=== PATIENT | female | born 1940 | race Caucasian/White ===

== ENCOUNTER → 2023-09-01 18:28 | Outpatient (REF) | payer MEDICARE, OTHER, SELFPAY | LOC: WDC 18:28 | PROVIDERS: ATTENDING PHYSICIAN Obstetrics & Gynecology; FAMILY PHYSICIAN Internal Medicine Geriatric Medicine | DX: Z12.31 Encounter for screening mammogram for malignant neoplasm of breast (principal); N64.4 Mastodynia | CPT/HCPCS: 77063; 77067 ==

== ENCOUNTER → 2023-10-08 08:22 | Outpatient (REF) | payer MEDICARE, OTHER, SELFPAY | LOC: RCS 08:22 | PROVIDERS: ATTENDING PHYSICIAN Nurse Practitioner; FAMILY PHYSICIAN Internal Medicine | DX: I10 Essential (primary) hypertension (principal); R00.2 Palpitations; I35.1 Nonrheumatic aortic (valve) insufficiency | CPT/HCPCS: 93306 ==

== ENCOUNTER 2023-12-15 10:03 | Emergency (ER) | payer MEDICARE, OTHER, SELFPAY ==
[2023-12-15 10:09] VITALS: BP 140/114
[2023-12-15 10:58] LABS: % Basophils 0.6 % (0-2); % Eosinophils 3.2 % (0-6); % Immature Granulocytes 0.3 % (0-0.5); % Lymphocytes 30.3 % (20.5-51.1); % Monocytes 8.3 % (1.7-9.3); % Neutrophils 57.3 % (42.2-75.2); Absolute Eosinophils 0.2 10^3/uL (0-0.7); Absolute Lymphocytes 1.9 10^3/uL (1.2-3.4); Absolute Monocytes 0.5 10^3/uL (0.1-0.6); Absolute Neutrophils 3.5 10^3/uL (1.4-6.5); Hematocrit 31.1 % (37.0-47.0); Hemoglobin 10.7 g/dL (12.0-16.0); Mean Corp Hgb Conc. 34.4 g/dL (33.0-37.0); Mean Corpuscular Hgb 30.8 pg (27.0-31.0); Mean Corpuscular Volume 89.6 fL (81.0-99.0); Mean Platelet Volume 9.4 fL (7.4-10.4); Nucleated Red Blood Cells % 0 %; Platelet Count 279 10^3/uL (130-400); Red Blood Cell Count 3.47 10^6/uL (4.20-5.40); Red Cell Dist. Width 12.7 % (11.5-14.5); White Blood Cell Count 6.2 10^3/uL (4.8-10.8)
[2023-12-15 11:13] LABS: ALT (SGPT) 22 U/L (0-35); AST (SGOT) 25 U/L (14-36); Albumin 4.1 g/dl (3.5-5.0); Alkaline Phosphatase 57 U/L (38-126); Blood Urea Nitrogen 18 mg/dl (7-17); Calcium 9.6 mg/dl (8.4-10.2); Carbon Dioxide 27 mmol/L (22-30); Chloride 105 mmol/L (98-107); Glucose 96 mg/dl (70-99); Sodium 139 mmol/L (135-145); Total Bilirubin 0.4 mg/dl (0.2-1.3); Total Protein 6.6 g/dl (6.3-8.2); eGFR > 60.00
[2023-12-15 11:22] LABS: Troponin I < 0.012 ng/ml
--- NOTE | 2023-12-15 11:25 | ED.GENMED ---
History of Present Illness
General
Chief Complaint: Musculo-Skeletal Complaint
Source: patient
Time Seen by Provider: 12/15/23 10:35
Travel History
Have you had any contact with someone who has COVID-19?: No
Do you have any symptoms of coronavirus? Fever > 100 degrees, chills, cough, shortness of breath, sore throat, loss of taste or smell, muscle aches, or headache?: No
History of Present Illness
History of Present Illness:
83-year-old female with past medical history of hypertension, hyperlipidemia, mitral valve prolapse presenting to the emergency department for evaluation of left shoulder pain that has been ongoing since yesterday, currently improved from yesterday
after patient noted she put some topical Biofreeze on this and had relief. Patient's main concern was that she felt a little short winded and as if she needed to take a deep breath and was concern for possible cardiac cause of her symptoms. She
denies any chest pain, palpitations, diaphoresis, exertional dyspnea, orthopnea, peripheral edema, cough, fevers or infectious symptoms. Patient does note she was lifting some objects over the weekend and that this could have contributed to her
left shoulder pain. She did not take anything for her symptoms yet today.
Past History
Past History
ED Past Medical History: GERD, HTN, Valvular disease (MVP) and Psychiatric
ED Past Surgical History: Gynecological (Hysterectomy and bladder suspension surgery), Tonsilectomy and Urological; Negative Cardiac
Social History
Tobacco: Former smoker
Alcohol: Occasional
Drug: None
Personal:
Living: alone
Employment: Retired
Family History
Family History: Hypertension; Negative Early CAD
Review of Systems
Review of Systems
All Other Systems: ROS reviewed and negative except as documented in HPI and ROS
Phy Exam
Physical Exam
Physical Exam:
GENERAL: Alert , in no apparent distress
EYE: conjunctiva clear
NECK: Supple, no significant adenopathy.
ENT: o/p clr, mmm.
CARDIAC: Regular rate and rhythm
LUNGS: Clear breath sounds bilaterally, no acute respiratory distress, no wheezes/rales/rhonchi
NEUROLOGICAL: Alert and oriented
SKIN: Warm and dry, skin intact.
MUSCULOSKELETAL: Left upper extremity: No obvious deformity, erythema, edema, ecchymosis, abrasions or lacerations. There is some moderate tenderness within the proximal medial border of the scapula. Patient allows for full active and passive
range of motion of the left shoulder noting some discomfort past 90 degrees shoulder flexion as well as abduction. She has an easily palpable radial pulse. Sensation is grossly intact to light touch. Extremities otherwise warm and well-perfused.
PSYCH: Normal and appropriate interaction.
Scores
Heart Failure Risk
Heart Failure Risk Score: Not Applicable
Heart Score for Chest Pain Patients
STEMI patient?: Not applicable
Withdrawal Assessment of Alcohol
Withdrawal Assessment Completed?: Not applicable
Course
Orders/Labs/Results
Orders:
Orders
12/15/23 10:13
ECG [Electrocardiogram (*1)] Urgent
Reason for Study: Other
Other Reason for Exam: L shoulder pain
EKG- Treatment ONCE
12/15/23 10:46
CR Shoulder - Left Min 2 View* Urgent
Comment:
Reason For Exam: shoulder pain, no trauma
12/15/23 10:49
Complete Blood Count/With Diff Urgent
Comprehensive Metabolic Panel Urgent
Troponin I Urgent
Abnormal Lab Results
12/15/23
10:49
RBC 3.47 L 10^6/uL
(4.20-5.40)
Hgb 10.7 L g/dL
(12.0-16.0)
Hct 31.1 L %
(37.0-47.0)
BUN 18 H mg/dl
(7-17)
12/15/23 10:49
12/15/23 10:49
Vital Signs
Initial and Last Documented VS:
Initial Vital Signs
Temp Pulse Resp BP Pulse Ox
97.9 F 70 18 140/114 97
12/15/23 10:09 12/15/23 10:09 12/15/23 10:09 12/15/23 10:09 12/15/23 10:09
Last Documented Vital Signs
Temp Pulse Resp BP Pulse Ox
97.9 F 60 16 141/68 98
12/15/23 10:09 12/15/23 11:40 12/15/23 11:40 12/15/23 11:40 12/15/23 11:40
MDM/Problems Addressed
Differential Diagnosis Includes:
Muscle strain, osteoarthritis, bursitis, tendinitis, less concern for an atypical ACS presentation but given age and past medical history will check troponin and EKG
MDM/Problems Addressed:
83-year-old female presenting to the emergency department for atraumatic left shoulder pain x 24 hours. Symptoms today are improved compared to yesterday. Patient did note some mild shortness of breath yesterday. She does not appear to be in any
acute distress, no hypoxia, no tachypnea or accessory muscle use. Pain is pretty clearly reproducible around the trapezius and medial border of the scapula making a musculoskeletal etiology more likely. EKG done in triage is nonischemic. Will
check labs with anticipation of being discharged home and close follow-up with primary care
*Radiology
Radiology exam reviewed: preliminary read by ED provider (mild arthritic changes)
*Pulse Oximetry
Patient hypoxic: no
*EKG
Interpreted by ED Provider?: Yes
Comparison EKG: no changes
Heart Rate: 65
Rate: normal
Rhythm: sinus
Ischemia: no ischemia
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
Rate: normal
Rhythm: sinus
*Critical Care Note
Total Time (30-74mins, 75-104mins- exclusive of procedures): Not Applicable
Patient Management
Escalation/DeEscalation of care consider admission/obs:
Patients work up unremarkable for acute pathology. EKG non-ischemic, trop negative and labs otherwise reassuring. XR shoulder shows mild degenerative changes. Outpatient follow up with PCP. Aware of return precautions to ED.
ED Attending Note
-
Portions of this chart may have been created with voice recognition software.� Occasional wrong word or��sound alike� substitutions may have occurred due to the inherent limitations of voice recognition software.
Discharge Plan
Departure
Patient Disposition: Home (Routine Discharge)
Date of Disposition: 12/15/23
Time of Disposition: 11:42
Patient with high blood pressure during this ER visit?: Yes
Discharge Problem:
Left shoulder pain
Instructions: Shoulder pain
Prescriptions:
No Action
omeprazole 20 MG capsule,delayed release(DR/EC)
20 mg PO DAILYPRN PRN (Reason: as directed)
coenzyme Q10 [Co Q-10] 100 MG capsule
100 mg PO DAILY
Multivitamin
1 tab PO DAILY
Vitamin D
2,000 mg PO DAILY
calcium carbonate [Antacid Extra-Strength] 1 TABLET tablet,chewable
1 tab PO PRN PRN (Reason: heartburn)
naproxen sodium [Aleve] 220 MG tablet
220 mg PO PRN PRN (Reason: pain)
[place] Xl
1 tab PO DAILY
fluoxetine 20 MG capsule
20 mg PO DAILY
Referrals:
Dejuan Peñaloza MD [Family Provider] -
Interventions
Interventions:
*Risk Screen - Suicide Last Done: 12/15/23 10:45
*General Assessment Last Done: 12/15/23 10:45
*Neglect/Abuse Screening Last Done: 12/15/23 10:45
ED- Fall Risk Assessment Last Done: 12/15/23 10:45
*ED COVID-19 Vaccine History Last Done: 12/15/23 10:09
*Nursing Disposition Last Done: 12/15/23 12:09
ED-Musculoskeletal Assessment Last Done: 12/15/23 10:45
Discharge Date and Time
Discharge Date/Time: 12/15/23 12:00
Print Language: KINYARWANDA
[2023-12-15 11:40] VITALS: BP 141/68
== END 2023-12-15 12:00 | disposition home or self-care (01) ==
LOC: EMR 10:03
PROVIDERS: Physician Assistant Medical; EMERGENCY PHYSICIAN Emergency Medicine; FAMILY PHYSICIAN Internal Medicine Geriatric Medicine
DX: M25.512 Pain in left shoulder (principal); I10 Essential (primary) hypertension; E78.00 Pure hypercholesterolemia, unspecified; I34.1 Nonrheumatic mitral (valve) prolapse; K21.9 Gastro-esophageal reflux disease without esophagitis; Z82.49 Family history of ischemic heart disease and other diseases of the circulatory system; Z87.891 Personal history of nicotine dependence; Z90.710 Acquired absence of both cervix and uterus
CPT/HCPCS: 99283; 73030; 80053; 84484; 85025; 93005

== ENCOUNTER 2023-12-25 11:12 | Outpatient (RCR) | payer MEDICARE, OTHER, SELFPAY | END 2023-12-25 23:59 | disposition home or self-care (01) | LOC: RPT 11:12 | PROVIDERS: ATTENDING PHYSICIAN Nurse Practitioner Family; FAMILY PHYSICIAN Internal Medicine Geriatric Medicine | DX: M48.02 Spinal stenosis, cervical region (principal); Z73.6 Limitation of activities due to disability | CPT/HCPCS: 97110; 97162; 97535 ==

== ENCOUNTER → 2024-01-06 08:25 | Outpatient (REF) | payer MEDICARE, OTHER, SELFPAY | LOC: RAD 08:25 | PROVIDERS: ATTENDING PHYSICIAN Nurse Practitioner Family | DX: M85.89 Other specified disorders of bone density and structure, multiple sites (principal) | CPT/HCPCS: 77080 ==

== ENCOUNTER 2024-01-22 10:32 | Outpatient (RCR) | payer MEDICARE, OTHER, SELFPAY | END 2024-01-22 23:59 | disposition home or self-care (01) | LOC: RPT 10:32 | PROVIDERS: ATTENDING PHYSICIAN Nurse Practitioner Family; FAMILY PHYSICIAN Internal Medicine Geriatric Medicine | DX: M48.02 Spinal stenosis, cervical region (principal); Z73.6 Limitation of activities due to disability | CPT/HCPCS: 97110 ==

== ENCOUNTER → 2024-02-01 10:04 | Outpatient (REF) | payer MEDICARE, OTHER, SELFPAY | LOC: RAD 10:04 | PROVIDERS: ATTENDING PHYSICIAN Nurse Practitioner Family; FAMILY PHYSICIAN Internal Medicine Geriatric Medicine | DX: K59.00 Constipation, unspecified (principal); R39.15 Urgency of urination | CPT/HCPCS: 74018 ==

== ENCOUNTER 2024-03-23 01:23 | Emergency (ER) | payer MEDICARE, OTHER, SELFPAY ==
[2024-03-23 01:33] VITALS: BP 153/67
[2024-03-23 01:39] VITALS: BP 153/67
--- NOTE | 2024-03-23 01:45 | ED.GENMED ---
History of Present Illness
<Flanagan (Lenka) MARCO Ramirez - Last Filed: 03/23/24 02:31>
General
Chief Complaint: Blood Pressure Problem
Source: patient
Exam Limitations: none
Time Seen by Provider: 03/23/24 01:41
Nursing documentation reviewed up to this point in time: agreed with
History of Present Illness
History of Present Illness:
Pt is an 83yo female with PMHx of HTN/HLD, MVP, sleep apnea, GERD, depression/anxiety who presents to the ED with concerns over 'low pulse' and elevated BP. Per pt, she took her metoprolol a few hours late tonight and 30 minutes after taking it (at
2230), she checked her BP. Her machine indicated that her BP was 150s/70s and her pulse was 59 bpm. She contacted a nurse line regarding her pulse being in the 50s, where she was told if her pulse continues to decrease she should go to the ED. Pt
checked her BP and pulse 'a few minutes' after that, pulse was 58 bpm. Pt started to feel anxious and upon recheck after another 'few minutes', her BP was around 200 systolic with a pulse of 57 bpm. She states she lives alone and became concerned.
Her pulse is usually in the 'low 60s' and BP ranges from 130 systolic - 150 systolic typically. She notes that she usually takes her BP sitting with feet uncrossed, tonight she took it while lounging back in a recliner. She states that her left arm
feels 'somewhat numb and faintly tingly' after the blood pressure cuff squeezes her arm. She endorses 1-2 episodes of occipital CARROLL over the past 2 weeks, states that she thinks sometimes her BP is in the 170s when she has the CARROLL. She states that she
had L-sided chest pain earlier today. She notes that she is always short of breath at baseline, especially when supine. Denies new onset abdominal pain, new bladder changes or stool changes.
Pt takes metoprolol 25mg BID, but she does not adhere to the strict 12 hour regimen.
Past History
<MARCO Alfonso (Lenka) - Last Filed: 03/23/24 02:31>
Past History
ED Past Medical History: GERD, HTN, Valvular disease (MVP) and Psychiatric (anxiety, depression)
ED Past Surgical History: Gynecological (Hysterectomy and bladder suspension surgery), Tonsilectomy and Urological; Negative Cardiac
Social History
Tobacco: Former smoker
Alcohol: Occasional
Drug: None
Personal:
Living: alone
Employment: Retired
Family History
Family History: Hypertension; Negative Early CAD
Phy Exam
<MARCO Alfonso (Lenka) - Last Filed: 03/23/24 02:31>
General Physical Exam
General Presentation: well appearing and no apparent distress
General age: appears stated age
General Skin: warm and dry
General Habitus: normal
General Mental: anxious
General Hydration: appears well hydrated
Eye Exam
Eye Exam: PERRL, EOMI and conjunctiva normal
Cardiovascular Exam
Cardiovascular Exam: regular rate/rhythm and normal peripheral pulses (2+ and symmetrical B/L)
Heart Sounds: normal
Pulmonary Exam
Pulmonary Exam: lungs clear, no respiratory distress, no rales, chest non tender, no rhonchi, no wheezing and no cough
Gastrointestinal Exam
Gastrointestinal Exam: non tender, soft and non distended
Neurological Exam
Neurological Exam: alert, oriented x3, no sensory deficits and speech normal
Musculoskeletal Exam
Musculoskeletal Exam: full ROM and neuro vasc intact
Skin Exam
Skin Exam: normal color and warm/dry
Psychiatric Exam
Psychiatric Exam: anxious
Course
<MARCO Alfonso (Lenka) - Last Filed: 03/23/24 02:31>
Orders/Labs/Results
Orders:
Orders
03/23/24 01:28
Electrocardiogram (*1) Urgent
Reason for Study: Hypertension, Benign
EKG- Treatment ONCE
03/23/24 01:48
Complete Blood Count/With Diff Urgent
Comprehensive Metabolic Panel Urgent
Troponin I Urgent
Abnormal Lab Results
03/23/24
01:48
RBC 3.37 L 10^6/uL
(4.20-5.40)
Hgb 10.5 L g/dL
(12.0-16.0)
Hct 29.6 L %
(37.0-47.0)
MCH 31.2 H pg
(27.0-31.0)
BUN 22 H mg/dl
(7-17)
Glucose 116 H mg/dl
(70-99)
Calcium 10.3 H mg/dl
(8.4-10.2)
03/23/24 01:48
03/23/24 01:48
Vital Signs
Initial and Last Documented VS:
Initial Vital Signs
BP
153/67
03/23/24 01:33
Last Documented Vital Signs
Temp Pulse Resp BP Pulse Ox
98.6 F 58 18 136/77 98
03/23/24 01:39 03/23/24 01:39 03/23/24 01:39 03/23/24 03:00 03/23/24 01:39
<Clive Ibrahim, DO - Last Filed: 03/23/24 03:35>
Orders/Labs/Results
Orders:
Orders
03/23/24 01:28
Electrocardiogram (*1) Urgent
Reason for Study: Hypertension, Benign
EKG- Treatment ONCE
03/23/24 01:48
Complete Blood Count/With Diff Urgent
Comprehensive Metabolic Panel Urgent
Troponin I Urgent
Abnormal Lab Results
03/23/24
01:48
RBC 3.37 L 10^6/uL
(4.20-5.40)
Hgb 10.5 L g/dL
(12.0-16.0)
Hct 29.6 L %
(37.0-47.0)
MCH 31.2 H pg
(27.0-31.0)
BUN 22 H mg/dl
(7-17)
Glucose 116 H mg/dl
(70-99)
Calcium 10.3 H mg/dl
(8.4-10.2)
03/23/24 01:48
03/23/24 01:48
Vital Signs
Initial and Last Documented VS:
Initial Vital Signs
BP
153/67
03/23/24 01:33
Last Documented Vital Signs
Temp Pulse Resp BP Pulse Ox
98.6 F 58 18 136/77 98
03/23/24 01:39 03/23/24 01:39 03/23/24 01:39 03/23/24 03:00 03/23/24 01:39
<MARCO Alfonso (Lenka) - Last Filed: 03/23/24 02:31>
MDM/Problems Addressed
Differential Diagnosis Includes:
DDx: anxiety vs bradycardia 2/2 metoprolol ingestion vs ACS event
Pt presenting with bradycardia and concerns over one elevated BP reading in the 200 systolic range. Will obtain EKG and troponin.
EKG - sinus bradycardia (57 bpm), normal axis (my read)
Chronic conditions affecting care: HTN
<MARCO Alfonso (Lenka) - Last Filed: 03/23/24 02:31>
*Critical Care Note
Total Time (30-74mins, 75-104mins- exclusive of procedures): Not Applicable
ED Attending Note
<Masha Ramirez (Lenka) STPA - Last Filed: 03/23/24 02:31>
-
Portions of this chart may have been created with voice recognition software.� Occasional wrong word or��sound alike� substitutions may have occurred due to the inherent limitations of voice recognition software.
<Clive Ibrahim DO - Last Filed: 03/23/24 03:35>
ED Attending Note
Patient seen and examined by attending physician: Yes
I performed the substantive portion of visit, reviewed & personally made and approve the management plan that is documented in note by myself or ARMEN.: Yes
ED Attending Note:
83-year-old female with a history of anxiety and hypertension presents to the emergency department after checking her blood pressure and finding it to be high and her pulse to be low. Denies any chest pain or shortness of breath. She did take her
metoprolol later than normal this evening. 30 minutes after taking her medication she checked her blood pressure and it was high. Patient was concerned because her pulse went from 59-58-57 and that concerned her. Denies any other symptoms.
Patient was seen in conjunction with the PA student. I have reviewed and agree with the history and treatment plan presented. On my independent physical exam, patient is awake, alert, and oriented x3, no acute distress. Heart is regular rate and
rhythm. Lungs are clear to auscultation bilaterally without wheezes rales or rhonchi present. Moves all 4 extremities. Skin is warm and dry.
Plan is discharged to follow-up with her primary care provider's office.
Discharge Plan
Departure
Patient Disposition: Home (Routine Discharge)
Date of Disposition: 03/23/24
Time of Disposition: 03:33
Patient with high blood pressure during this ER visit?: Yes
Condition: Good
Discharge Problem:
Hypertension
Instructions: High Blood Pressure (DC), BLOOD PRESSURE
Prescriptions:
No Action
omeprazole 20 MG capsule,delayed release(DR/EC)
20 mg PO DAILYPRN PRN (Reason: as directed)
coenzyme Q10 [Co Q-10] 100 MG capsule
100 mg PO DAILY
Multivitamin
1 tab PO DAILY
Vitamin D
2,000 mg PO DAILY
calcium carbonate [Antacid Extra-Strength] 1 TABLET tablet,chewable
1 tab PO PRN PRN (Reason: heartburn)
naproxen sodium [Aleve] 220 MG tablet
220 mg PO PRN PRN (Reason: pain)
[place] Xl
1 tab PO DAILY
fluoxetine 20 MG capsule
20 mg PO DAILY
Referrals:
Dejuan Peñaloza MD [Family Provider] -
Activity Restrictions/Additional Instructions:
It was a pleasure meeting you and taking part in your care. We hope for your continued healing and wellness.
Please read discharge instructions in their entirety. However, they are for general education and may not describe your exact diagnosis at discharge. Information on your ER visit and medical conditions were discussed with you along with appropriate
follow up information...
If indicated, please take your medications as instructed and indicated on discharge paperwork.
Please schedule a follow up appointment as directed. Call to schedule an appointment
Please return to the emergency department with ANY change in, persisting, or worsening of symptoms. If any of your symptoms do not improve, or persist, or become more severe within 6-12 hours, please return to the emergency department for further
care.
Please return to the emergency department if you develop a headache, neck pain/stiffness, fever greater than 100.4F, chest pain, shortness of breath, persistent nausea, vomiting, slurred speech, difficulty walking, numbness/tingling, weakness, signs
of infection or any other symptoms that are worrisome to you.
If you have any questions or concerns please do not hesitate to call the Hospital at or E-mail me directly at [email or web address]
Interventions
Interventions:
*Risk Screen - Suicide Last Done: 03/23/24 01:38
*General Assessment Last Done: 03/23/24 01:40
*Neglect/Abuse Screening Last Done: 03/23/24 01:41
*ED COVID-19 Vaccine History Last Done: 03/23/24 01:41
ED- Cardiac Assessment Last Done: 03/23/24 02:13
ED- Neurological Assessment Last Done: 03/23/24 01:39
ED- Pulmonary Assessment Last Done: 03/23/24 01:39
Discharge Date and Time
Print Language: MARSHALLESE
[2024-03-23 01:55] LABS: % Basophils 0.9 % (0-2); % Eosinophils 3.3 % (0-6); % Immature Granulocytes 0.3 % (0-0.5); % Lymphocytes 26.9 % (20.5-51.1); % Monocytes 6.7 % (1.7-9.3); % Neutrophils 61.9 % (42.2-75.2); Absolute Basophils 0.1 10^3/uL (0-0.2); Absolute Eosinophils 0.3 10^3/uL (0-0.7); Absolute Lymphocytes 2.4 10^3/uL (1.2-3.4); Absolute Monocytes 0.6 10^3/uL (0.1-0.6); Absolute Neutrophils 5.6 10^3/uL (1.4-6.5); Hematocrit 29.6 % (37.0-47.0); Hemoglobin 10.5 g/dL (12.0-16.0); Mean Corp Hgb Conc. 35.5 g/dL (33.0-37.0); Mean Corpuscular Hgb 31.2 pg (27.0-31.0); Mean Corpuscular Volume 87.8 fL (81.0-99.0); Mean Platelet Volume 9.6 fL (7.4-10.4); Nucleated Red Blood Cells % 0 %; Platelet Count 299 10^3/uL (130-400); Red Blood Cell Count 3.37 10^6/uL (4.20-5.40); Red Cell Dist. Width 12.4 % (11.5-14.5); White Blood Cell Count 9.1 10^3/uL (4.8-10.8)
[2024-03-23 02:00] VITALS: BP 157/74
[2024-03-23 02:11] VITALS: BP 151/75
[2024-03-23 02:15] LABS: ALT (SGPT) 16 U/L (0-35); AST (SGOT) 23 U/L (14-36); Albumin 4.4 g/dl (3.5-5.0); Alkaline Phosphatase 62 U/L (38-126); Blood Urea Nitrogen 22 mg/dl (7-17); Calcium 10.3 mg/dl (8.4-10.2); Carbon Dioxide 26 mmol/L (22-30); Chloride 103 mmol/L (98-107); Glucose 116 mg/dl (70-99); Potassium 4.1 mmol/L (3.5-5.1); Sodium 140 mmol/L (135-145); Total Bilirubin 0.5 mg/dl (0.2-1.3); Total Protein 6.7 g/dl (6.3-8.2); eGFR > 60.00
[2024-03-23 02:35] LABS: Troponin I 0.015 ng/ml
[2024-03-23 03:00] VITALS: BP 136/77
== END 2024-03-23 03:40 | disposition home or self-care (01) ==
LOC: EMR 01:23
PROVIDERS: EMERGENCY PHYSICIAN Student in an Organized Health Care Education/Training Program; FAMILY PHYSICIAN Internal Medicine Geriatric Medicine
DX: I10 Essential (primary) hypertension (principal); E78.00 Pure hypercholesterolemia, unspecified; I34.1 Nonrheumatic mitral (valve) prolapse; G47.30 Sleep apnea, unspecified; K21.9 Gastro-esophageal reflux disease without esophagitis; F41.8 Other specified anxiety disorders; Z79.899 Other long term (current) drug therapy; Z82.49 Family history of ischemic heart disease and other diseases of the circulatory system; Z87.891 Personal history of nicotine dependence; Z90.710 Acquired absence of both cervix and uterus
CPT/HCPCS: 99283; 80053; 84484; 85025; 93005

== ENCOUNTER → 2024-04-21 10:54 | Outpatient (REF) | payer MEDICARE, OTHER, SELFPAY | LOC: RCS 10:54 | PROVIDERS: ATTENDING PHYSICIAN Nurse Practitioner Family | DX: R42 Dizziness and giddiness (principal); R00.2 Palpitations | CPT/HCPCS: 93225; 93226 ==

== ENCOUNTER → 2024-06-03 13:35 | Outpatient (REF) | payer MEDICARE, OTHER, SELFPAY ==
[2024-06-03 15:00] LABS: % Basophils 0.7 % (0-2); % Eosinophils 2.7 % (0-6); % Immature Granulocytes 0.2 % (0-0.5); % Lymphocytes 26.8 % (20.5-51.1); % Monocytes 5.3 % (1.7-9.3); % Neutrophils 64.3 % (42.2-75.2); Absolute Basophils 0.1 10^3/uL (0-0.2); Absolute Eosinophils 0.2 10^3/uL (0-0.7); Absolute Lymphocytes 2.3 10^3/uL (1.2-3.4); Absolute Monocytes 0.5 10^3/uL (0.1-0.6); Absolute Neutrophils 5.5 10^3/uL (1.4-6.5); Hematocrit 34.7 % (37.0-47.0); Hemoglobin 11.7 g/dL (12.0-16.0); Mean Corp Hgb Conc. 33.7 g/dL (33.0-37.0); Nucleated Red Blood Cells % 0 %; Platelet Count 329 10^3/uL (130-400); Red Blood Cell Count 3.77 10^6/uL (4.20-5.40); Red Cell Dist. Width 12.4 % (11.5-14.5); White Blood Cell Count 8.6 10^3/uL (4.8-10.8)
[2024-06-03 15:22] LABS: ALT (SGPT) 23 U/L (0-35); AST (SGOT) 26 U/L (14-36); Albumin 4.9 g/dl (3.5-5.0); Alkaline Phosphatase 61 U/L (38-126); Blood Urea Nitrogen 22 mg/dl (7-17); Calcium 10.1 mg/dl (8.4-10.2); Carbon Dioxide 26 mmol/L (22-30); Chloride 101 mmol/L (98-107); Glucose 97 mg/dl (70-99); Potassium 4.5 mmol/L (3.5-5.1); Sodium 140 mmol/L (135-145); Total Bilirubin 0.4 mg/dl (0.2-1.3); Total Protein 7.7 g/dl (6.3-8.2); eGFR > 60.00
[2024-06-03 16:28] LABS: Vitamin B12 > 1000 pg/ml (239-931)
== END ==
LOC: REG 13:35
PROVIDERS: ATTENDING PHYSICIAN Nurse Practitioner Family
DX: M54.2 Cervicalgia (principal); R41.3 Other amnesia
CPT/HCPCS: 36415; 72052; 80053; 82607; 82746; 85025; 86618

== ENCOUNTER → 2024-07-09 08:25 | Outpatient (REF) | payer MEDICARE, OTHER, SELFPAY | LOC: MRI 3T 08:25 | PROVIDERS: ATTENDING PHYSICIAN Nurse Practitioner Family | DX: R41.3 Other amnesia (principal) | CPT/HCPCS: 70551 ==

== ENCOUNTER → 2024-07-25 13:34 | Outpatient (REF) | payer MEDICARE, OTHER, SELFPAY ==
[2024-07-25 14:51] LABS: % Basophils 0.6 % (0-2); % Immature Granulocytes 0.4 % (0-0.5); % Lymphocytes 25.2 % (20.5-51.1); % Monocytes 7.2 % (1.7-9.3); % Neutrophils 63.6 % (42.2-75.2); Absolute Basophils 0.1 10^3/uL (0-0.2); Absolute Eosinophils 0.2 10^3/uL (0-0.7); Absolute Monocytes 0.6 10^3/uL (0.1-0.6); Hematocrit 32.8 % (37.0-47.0); Hemoglobin 10.6 g/dL (12.0-16.0); Mean Corp Hgb Conc. 32.3 g/dL (33.0-37.0); Mean Corpuscular Hgb 30.1 pg (27.0-31.0); Mean Corpuscular Volume 93.2 fL (81.0-99.0); Mean Platelet Volume 9.6 fL (7.4-10.4); Nucleated Red Blood Cells % 0 %; Platelet Count 277 10^3/uL (130-400); Red Blood Cell Count 3.52 10^6/uL (4.20-5.40); Red Cell Dist. Width 12.5 % (11.5-14.5); White Blood Cell Count 7.8 10^3/uL (4.8-10.8)
[2024-07-25 15:08] LABS: Iron 71 ug/dl (37-170)
[2024-07-25 15:18] LABS: Percent Saturation 23 % (20-50); Total Iron Binding Capacity 307 ug/dl (265-497)
[2024-07-25 15:42] LABS: Ferritin 60.2 ng/ml (11.1-264.0)
== END ==
LOC: REG 13:34
PROVIDERS: ATTENDING PHYSICIAN Nurse Practitioner Family
DX: G25.81 Restless legs syndrome (principal); R79.9 Abnormal finding of blood chemistry, unspecified
CPT/HCPCS: 36415; 82728; 83540; 83550; 85025

== ENCOUNTER → 2024-08-10 12:23 | Outpatient (REF) | payer MEDICARE, OTHER, SELFPAY ==
[2024-08-10 16:55] LABS: Urine Albumin Negative (Neg - Trace); Urine Bilirubin Negative (Negative); Urine Character Clear (Clear); Urine Color Yellow; Urine Glucose Negative (Negative); Urine Ketone Negative (Negative); Urine Leukocyte Trace (Negative); Urine Nitrite Negative (Negative); Urine Occult Blood Negative (Negative); Urine Specific Gravity 1.015 (<1.030); Urine Urobilinogen Negative (Neg - 1+)
[2024-08-10 17:06] LABS: Urine Squamous Cell 0-2 /LPF (Few)
[2024-08-10 17:07] LABS: Urine Bacteria Many (Negative); Urine Red Blood Cell 0-2 /HPF (0-2)
== END ==
LOC: CLAB 12:23
PROVIDERS: ATTENDING PHYSICIAN Family Medicine
DX: R82.90 Unspecified abnormal findings in urine (principal); R10.9 Unspecified abdominal pain; R35.0 Frequency of micturition
CPT/HCPCS: 81003; 81015; 87077; 87086; 87186

== ENCOUNTER → 2024-09-02 11:13 | Outpatient (REF) | payer MEDICARE, OTHER, SELFPAY | LOC: WDC 11:13 | PROVIDERS: ATTENDING PHYSICIAN Family Medicine | DX: Z12.31 Encounter for screening mammogram for malignant neoplasm of breast (principal) | CPT/HCPCS: 77063; 77067 ==

== ENCOUNTER 2024-09-30 11:07 | Emergency (ER) | payer MEDICARE, OTHER, SELFPAY ==
[2024-09-30 11:09] VITALS: BP 165/82
--- NOTE | 2024-09-30 11:40 | ED.GENMED ---
History of Present Illness
General
Chief Complaint: Abdominal Pain
Source: patient
Exam Limitations: none
Time Seen by Provider: 09/30/24 11:14
History of Present Illness
History of Present Illness:
84yoF with a history of hypertension, hyperlipidemia, HOLLIE, hypothyroidism, GERD, and diverticulosis presenting with her daughter for evaluation of abdominal pain. Patient reports left lower quadrant pain which began this morning. The pain is
primarily present with position changes. She denies any history of similar pains in the past. She has a history of diverticulosis although is unsure if she ever had an episode of diverticulitis. She had a small bowel movement this morning and has
been having ongoing issues with constipation. She also reports that she is urinating more than usual recently. She is otherwise asymptomatic and denies any fevers, chills, nausea, vomiting, dysuria, chest pain, shortness of breath. Previous
abdominal surgeries include a hysterectomy.
Past History
Past History
ED Past Medical History: GERD, HTN, Valvular disease (MVP) and Psychiatric (anxiety, depression)
ED Past Surgical History: Gynecological (Hysterectomy and bladder suspension surgery), Tonsilectomy and Urological; Negative Cardiac
Social History
Tobacco: Former smoker
Alcohol: Occasional
Drug: None
Personal:
Living: alone
Employment: Retired
Family History
Family History: Hypertension; Negative Early CAD
Phy Exam
General Physical Exam
General Presentation: well appearing and no apparent distress
General age: appears stated age
General Skin: warm and dry
General Habitus: normal
General Mental: alert
ENT Exam
ENT Exam: normocephalic
Cardiovascular Exam
Cardiovascular Exam: regular rate/rhythm
Pulmonary Exam
Pulmonary Exam: lungs clear, no respiratory distress, no rales, no crackles, no rhonchi and no wheezing
Gastrointestinal Exam
Gastrointestinal Exam: soft, non distended and other (+LLQ tenderness. Abdomen soft, non-distended. No rebound or guarding. )
Neurological Exam
Neurological Exam: alert
[place] Coma Scale
Eye Opening: Spontaneous
Verbal Response: Oriented
Motor Response: Obeys Commands
GCS Total Score: 15
Skin Exam
Skin Exam: normal color and warm/dry
Psychiatric Exam
Psychiatric Exam: normal mood/affect
Course
Orders/Labs/Results
Orders:
Orders
09/30/24 11:34
Iohexol [Omnipaque] See Protocol PO NOW STA
09/30/24 11:35
CT Abd/pel W Iv And Oral Contr Urgent
Comment:
Reason For Exam: LLQ pain
Diphenhydramine [Benadryl] 25 mg IV NOW STA
Hydrocortisone Sod Succinate [Solu-Cortef] 200 mg IV NOW STA
09/30/24 11:47
Complete Blood Count/With Diff Urgent
Comprehensive Metabolic Panel Urgent
Lactate Level [Lactic Acid] Urgent
Lipase Urgent
09/30/24 15:42
Amoxicillin 875 mg/Clav 125 mg [Augmentin 875 mg/125 mg] 1 tablet PO NOW STA
Abnormal Lab Results
09/30/24
11:47
WBC 11.5 H 10^3/uL
(4.8-10.8)
RBC 3.57 L 10^6/uL
(4.20-5.40)
Hgb 10.9 L g/dL
(12.0-16.0)
Hct 32.9 L %
(37.0-47.0)
Abs Immat Gran (auto) 0.1 H 10^3/uL
(0-0.05)
Absolute Neuts (auto) 8.6 H 10^3/uL
(1.4-6.5)
Absolute Monos (auto) 0.9 H 10^3/uL
(0.1-0.6)
Lymphocytes % 15.3 L %
(20.5-51.1)
BUN 21 H mg/dl
(7-17)
Lactic Acid 0.6 L mmol/L
(0.7-2.0)
09/30/24 11:47
09/30/24 11:47
Vital Signs
Initial and Last Documented VS:
Initial Vital Signs
Temp Pulse Resp BP Pulse Ox
98.2 F 82 20 165/82 98
09/30/24 11:09 09/30/24 11:09 09/30/24 11:09 09/30/24 11:09 09/30/24 11:09
Last Documented Vital Signs
Temp Pulse Resp BP Pulse Ox
98.2 F 83 13 129/72 95
09/30/24 11:09 09/30/24 15:30 09/30/24 14:00 09/30/24 14:00 09/30/24 15:30
MDM/Problems Addressed
Differential Diagnosis Includes:
84yoF here with LLQ pain that started today. Also has chronic issues with constipation. Hx of diverticulosis. No f/c. She is mildly hypertensive with otherwise normal vital signs. She is well-appearing in no acute distress. No signs of
peritonitis on abdominal exam. Differential diagnosis includes but is not limited to: Diverticulitis, colitis, kidney stone, UTI, nonspecific abdominal pain
Initial ED plan: Check abdominal labs, lactate, UA, and CT abdomen with IV/p.o. contrast. There is a questionable allergy to iodine. Patient states she had a reaction to IV contrast many years ago although does not remember any details. She did
not require an EpiPen at that time. Will order IV Benadryl and hydrocortisone prior to contrast.
*Critical Care Note
Total Time (30-74mins, 75-104mins- exclusive of procedures): Not Applicable
Update Note
Update Note:
Labs reveal a mild leukocytosis with a white count 11.5. Lactate within normal limits. Remainder of labs overall unremarkable. CT shows findings compatible with diverticulitis in the distal descending colon. No evidence of abscess or
perforation. Notification for hospitalization at this time. She was started on a course of Augmentin. Advised clear liquid diet until pain improves. Advised close follow-up with PCP and strict ED return precautions reviewed. Patient and
daughter in agreement with plan and she was discharged in stable condition.
ED Attending Note
-
Portions of this chart may have been created with voice recognition software.� Occasional wrong word or��sound alike� substitutions may have occurred due to the inherent limitations of voice recognition software.
Discharge Plan
Departure
Patient Disposition: Home (Routine Discharge)
Date of Disposition: 09/30/24
Time of Disposition: 15:43
Patient with high blood pressure during this ER visit?: Yes
Discharge Problem:
Acute diverticulitis
Instructions: Clear Liquid Diet, Diverticulitis (DC)
Prescriptions:
New
amoxicillin-pot clavulanate 875-125 mg tablet
1 tab PO BID Qty: 19 0RF
No Action
omeprazole 20 MG capsule,delayed release(DR/EC)
20 mg PO DAILYPRN PRN (Reason: as directed)
coenzyme Q10 [Co Q-10] 100 MG capsule
100 mg PO DAILY
Multivitamin
1 tab PO DAILY
Vitamin D
2,000 mg PO DAILY
calcium carbonate [Antacid Extra-Strength] 1 TABLET tablet,chewable
1 tab PO PRN PRN (Reason: heartburn)
naproxen sodium [Aleve] 220 MG tablet
220 mg PO PRN PRN (Reason: pain)
[place] Xl
1 tab PO DAILY
fluoxetine 20 MG capsule
20 mg PO DAILY
Referrals:
Dejuan Peñaloza MD [Family Provider] -
Activity Restrictions/Additional Instructions:
Take antibiotics as prescribed. Eat a clear liquid diet until pain improves.
Please follow-up with your family doctor next week. Return to the ER with any worsening symptoms, severe pain, fevers, chills, or if you do not improve in 3 to 4 days.
Interventions
Interventions:
*Risk Screen - Suicide Last Done: 09/30/24 16:16
*General Assessment Last Done: 09/30/24 11:09
*Neglect/Abuse Screening Last Done: 09/30/24 16:16
*ED- Fall Risk Assessment Last Done: 09/30/24 16:16
*ED COVID-19 Vaccine History Last Done: 09/30/24 16:16
*Nursing Disposition Last Done: 09/30/24 16:16
VJ-Osiszm-Pjfkoumgph Assessment Last Done: 09/30/24 12:59
Discharge Date and Time
Discharge Date/Time: 09/30/24 16:20
Print Language: SINHALA
[2024-09-30 11:45] VITALS: BP 152/68
[2024-09-30] MEDS: SOLU-CORTEF 200 MG IV (11:55)
[2024-09-30] MEDS: BENADRYL 25 MG IV (11:57)
[2024-09-30 12:00] VITALS: BP 155/69
[2024-09-30 12:06] LABS: % Basophils 0.4 % (0-2); % Eosinophils 1.8 % (0-6); % Immature Granulocytes 0.5 % (0-0.5); % Lymphocytes 15.3 % (20.5-51.1); % Monocytes 7.4 % (1.7-9.3); % Neutrophils 74.6 % (42.2-75.2); Absolute Basophils 0.1 10^3/uL (0-0.2); Absolute Eosinophils 0.2 10^3/uL (0-0.7); Absolute Immature Granulocytes 0.1 10^3/uL (0-0.05); Absolute Lymphocytes 1.8 10^3/uL (1.2-3.4); Absolute Monocytes 0.9 10^3/uL (0.1-0.6); Absolute Neutrophils 8.6 10^3/uL (1.4-6.5); Hematocrit 32.9 % (37.0-47.0); Hemoglobin 10.9 g/dL (12.0-16.0); Mean Corp Hgb Conc. 33.1 g/dL (33.0-37.0); Mean Corpuscular Hgb 30.5 pg (27.0-31.0); Mean Corpuscular Volume 92.2 fL (81.0-99.0); Mean Platelet Volume 9.6 fL (7.4-10.4); Nucleated Red Blood Cells % 0 %; Platelet Count 308 10^3/uL (130-400); Red Blood Cell Count 3.57 10^6/uL (4.20-5.40); Red Cell Dist. Width 12.5 % (11.5-14.5); White Blood Cell Count 11.5 10^3/uL (4.8-10.8)
[2024-09-30] MEDS: OMNIPAQUE 50 ML PO (12:09)
[2024-09-30 12:19] LABS: Lactic Acid 0.6 mmol/L (0.7-2.0)
[2024-09-30 12:20] LABS: ALT (SGPT) 19 U/L (0-35); AST (SGOT) 18 U/L (14-36); Alkaline Phosphatase 70 U/L (38-126); Blood Urea Nitrogen 21 mg/dl (7-17); Calcium 9.6 mg/dl (8.4-10.2); Carbon Dioxide 26 mmol/L (22-30); Chloride 104 mmol/L (98-107); Glucose 92 mg/dl (70-99); Lipase 51 U/L (23-300); Potassium 4.2 mmol/L (3.5-5.1); Sodium 136 mmol/L (135-145); Total Bilirubin 0.5 mg/dl (0.2-1.3); Total Protein 6.5 g/dl (6.3-8.2); eGFR > 60.00
[2024-09-30 12:57] VITALS: BMI 24.1
[2024-09-30 13:00] VITALS: BP 160/74
[2024-09-30 14:00] VITALS: BP 129/72
[2024-09-30] MEDS: AUGMENTIN 875 MG/125 MG 1 TABLET PO (15:49)
== END 2024-09-30 16:20 | disposition home or self-care (01) ==
LOC: EMR 11:07
PROVIDERS: Physician Assistant; EMERGENCY PHYSICIAN Emergency Medicine; FAMILY PHYSICIAN Internal Medicine Geriatric Medicine
DX: K57.32 Diverticulitis of large intestine without perforation or abscess without bleeding (principal); I10 Essential (primary) hypertension; K21.9 Gastro-esophageal reflux disease without esophagitis; E78.5 Hyperlipidemia, unspecified; E03.9 Hypothyroidism, unspecified; Z87.891 Personal history of nicotine dependence
CPT/HCPCS: 99285; 96374; 96375; 74177; 80053; 83605; 83690; 85025; Q9967

== ENCOUNTER 2024-12-19 09:30 | Emergency (ER) | payer MEDICARE, OTHER, SELFPAY ==
[2024-12-19 09:31] VITALS: BP 167/85
[2024-12-19 10:07] VITALS: BMI 24.6
[2024-12-19 10:13] VITALS: BP 145/69
--- NOTE | 2024-12-19 10:29 | ED.GENMED ---
History of Present Illness
General
Chief Complaint: Chest Problem
Source: patient
Exam Limitations: none
Time Seen by Provider: 12/19/24 10:13
History of Present Illness
History of Present Illness:
84-year-old female presents with the onset of significant sharp pain to the center of her chest that radiated to her neck into her ears. She describes it as a spasm sensation. There was no shortness of breath. The pain was not pleuritic. She
took a drink of an antacid liquid medicine and it seemed to have helped. At the time my exam her chest pain is gone. She still notes puffy watery eyes. No new medications. No vomiting. No abdominal pain. No fever or cough. No other complaints
at this time
Past History
Past History
ED Past Medical History: GERD, HTN, Valvular disease (MVP) and Psychiatric (anxiety, depression)
ED Past Surgical History: Gynecological (Hysterectomy and bladder suspension surgery), Tonsilectomy and Urological; Negative Cardiac
Social History
Tobacco: Former smoker
Alcohol: Occasional
Drug: None
Personal:
Living: alone
Employment: Retired
Family History
Family History: Hypertension; Negative Early CAD
Phy Exam
Physical Exam
Physical Exam:
General: Well-appearing female no acute respiratory distress
HEENT: Normocephalic atraumatic mild chemosis bilaterally with swollen eyelids bilaterally posterior pharynx patent no asymmetry no trismus or drooling
Heart: Regular rate and rhythm
Lungs: Clear no wheeze
Abdomen is soft nontender nondistended
Extremities: No cyanosis or edema
Skin: Warm bilateral upper eyelid swollen. There is urticarial type rash over the face and arms
Course
Orders/Labs/Results
Orders:
Orders
12/19/24 09:34
ECG [Electrocardiogram (*1)] Urgent
Reason for Study: Chest Pain
EKG- Treatment ONCE
12/19/24 10:27
Diphenhydramine [Benadryl] 25 mg IV NOW STA
12/19/24 10:28
CR Chest - 2 Views Urgent
Comment:
Reason For Exam: chest pain
12/19/24 10:34
Famotidine [Pepcid] 20 mg IV NOW STA
12/19/24 10:43
Basic Metabolic Panel Urgent
Complete Blood Count/With Diff Urgent
D-Dimer Urgent
Lipase Urgent
12/19/24 11:46
CT Chest Angio W/wo Iv Contras Urgent
Comment:
Reason For Exam: chest and neck pain
12/19/24 12:02
Comprehensive Metabolic Panel Urgent
Troponin I Urgent
12/19/24 12:17
Hydrocortisone Sod Succinate [Solu-Cortef] 200 mg IV NOW STA
Abnormal Lab Results
12/19/24 12/19/24
10:43 12:02
RBC 3.67 L 10^6/uL
(4.20-5.40)
Hgb 11.4 L g/dL
(12.0-16.0)
Hct 33.6 L %
(37.0-47.0)
MCH 31.1 H pg
(27.0-31.0)
Lymphocytes % 19.4 L %
(20.5-51.1)
D-Dimer 3.88 H ug/mlFEU
(0.00-0.50)
Chloride 109 H mmol/L
(98-107)
BUN 23 H mg/dl 21 H mg/dl
(7-17) (7-17)
12/19/24 10:43
12/19/24 12:02
Vital Signs
Initial and Last Documented VS:
Initial Vital Signs
Temp Pulse Resp BP Pulse Ox
98.8 F 65 16 167/85 98
12/19/24 09:31 12/19/24 09:31 12/19/24 09:31 12/19/24 09:31 12/19/24 09:31
Last Documented Vital Signs
Temp Pulse Resp BP Pulse Ox
98.8 F 66 18 154/68 95
12/19/24 09:31 12/19/24 13:30 12/19/24 13:00 12/19/24 12:04 12/19/24 13:30
MDM/Problems Addressed
Differential Diagnosis Includes:
Patient had episode of chest pain that radiated to the neck and ears bilaterally that has now resolved. This resolved after taking an antacid medicine. Consider reflux versus esophageal spasm but given chest pain will get EKG, troponin D-dimer.
Chest x-ray ordered. Benadryl ordered for her hives.
*Critical Care Note
Total Time (30-74mins, 75-104mins- exclusive of procedures): Not Applicable
Update Note
Update Note:
Cardiac workup here negative. D-dimer was elevated which prompted a CT of the chest but this was negative. Patient's symptoms are resolved. Her rash is improved. I suspect underlying allergy mediated process causing the rash. Her pain that she
developed today was most likely. She will continue her omeprazole and follow-up with GI. Stable for discharge
ED Attending Note
-
Portions of this chart may have been created with voice recognition software.� Occasional wrong word or��sound alike� substitutions may have occurred due to the inherent limitations of voice recognition software.
Discharge Plan
Departure
Patient Disposition: Home (Routine Discharge)
Date of Disposition: 12/19/24
Time of Disposition: 14:40
Patient with high blood pressure during this ER visit?: No
Discharge Problem:
Chest pain
Instructions: Acid reflux and GERD in adults
Prescriptions:
No Action
omeprazole 20 MG capsule,delayed release(DR/EC)
20 mg PO DAILYPRN PRN (Reason: as directed)
coenzyme Q10 [Co Q-10] 100 MG capsule
100 mg PO DAILY
Multivitamin
1 tab PO DAILY
Vitamin D
2,000 mg PO DAILY
calcium carbonate [Antacid Extra-Strength] 1 TABLET tablet,chewable
1 tab PO PRN PRN (Reason: heartburn)
naproxen sodium [Aleve] 220 MG tablet
220 mg PO PRN PRN (Reason: pain)
[place] Xl
1 tab PO DAILY
fluoxetine 20 MG capsule
20 mg PO DAILY
amoxicillin-pot clavulanate 875-125 mg tablet
1 tab PO BID Qty: 19 0RF
Referrals:
Dejuan Peñaloza MD [Family Provider] -
Activity Restrictions/Additional Instructions:
Continue with omeprazole. Follow-up with your GI doctor peer return if worse otherwise
Interventions
Interventions:
*Risk Screen - Suicide Last Done: 12/19/24 10:07
*General Assessment Last Done: 12/19/24 10:07
*Neglect/Abuse Screening Last Done: 12/19/24 10:07
*ED- Fall Risk Assessment Last Done: 12/19/24 10:07
*ED COVID-19 Vaccine History Last Done: 12/19/24 10:07
ED- Cardiac Assessment Last Done: 12/19/24 10:03
ED- Pulmonary Assessment Last Done: 12/19/24 10:03
Discharge Date and Time
Print Language: GUAMANIAN
[2024-12-19] MEDS: BENADRYL 25 MG IV (10:45)
[2024-12-19] MEDS: PEPCID 20 MG IV (10:45)
[2024-12-19 11:00] VITALS: BP 165/63
[2024-12-19 11:05] LABS: % Basophils 0.4 % (0-2); % Eosinophils 1.1 % (0-6); % Immature Granulocytes 0.3 % (0-0.5); % Lymphocytes 19.4 % (20.5-51.1); % Monocytes 6.5 % (1.7-9.3); % Neutrophils 72.3 % (42.2-75.2); Absolute Eosinophils 0.1 10^3/uL (0-0.7); Absolute Lymphocytes 1.5 10^3/uL (1.2-3.4); Absolute Monocytes 0.5 10^3/uL (0.1-0.6); Absolute Neutrophils 5.7 10^3/uL (1.4-6.5); Hematocrit 33.6 % (37.0-47.0); Hemoglobin 11.4 g/dL (12.0-16.0); Mean Corp Hgb Conc. 33.9 g/dL (33.0-37.0); Mean Corpuscular Hgb 31.1 pg (27.0-31.0); Mean Corpuscular Volume 91.6 fL (81.0-99.0); Mean Platelet Volume 9.8 fL (7.4-10.4); Nucleated Red Blood Cells % 0 %; Platelet Count 256 10^3/uL (130-400); Red Blood Cell Count 3.67 10^6/uL (4.20-5.40); Red Cell Dist. Width 12.4 % (11.5-14.5); White Blood Cell Count 7.9 10^3/uL (4.8-10.8)
[2024-12-19 11:22] LABS: D-Dimer 3.88 ug/mlFEU (0.00-0.50)
[2024-12-19 11:40] LABS: Blood Urea Nitrogen 23 mg/dl (7-17); Calcium 9.6 mg/dl (8.4-10.2); Carbon Dioxide 28 mmol/L (22-30); Chloride 107 mmol/L (98-107); Estimated Creatinine Clearance 49 ml/min; Glucose 97 mg/dl (70-99); Lipase 41 U/L (23-300); Sodium 139 mmol/L (135-145); eGFR > 60.00
[2024-12-19 12:04] VITALS: BP 154/68
[2024-12-19] MEDS: SOLU-CORTEF 200 MG IV (12:22)
[2024-12-19 12:25] LABS: ALT (SGPT) 16 U/L (0-35); AST (SGOT) 20 U/L (14-36); Albumin 4.1 g/dl (3.5-5.0); Alkaline Phosphatase 59 U/L (38-126); Blood Urea Nitrogen 21 mg/dl (7-17); Calcium 9.1 mg/dl (8.4-10.2); Carbon Dioxide 27 mmol/L (22-30); Chloride 109 mmol/L (98-107); Estimated Creatinine Clearance 49 ml/min; Glucose 95 mg/dl (70-99); Potassium 3.9 mmol/L (3.5-5.1); Sodium 141 mmol/L (135-145); Total Bilirubin 0.7 mg/dl (0.2-1.3); Total Protein 6.5 g/dl (6.3-8.2); eGFR > 60.00
[2024-12-19 12:37] LABS: Troponin I < 0.012 ng/ml
== END 2024-12-19 14:56 | disposition home or self-care (01) ==
LOC: EMR 09:30
PROVIDERS: Physician Assistant; EMERGENCY PHYSICIAN Emergency Medicine; FAMILY PHYSICIAN Internal Medicine Geriatric Medicine
DX: R07.89 Other chest pain (principal); M54.2 Cervicalgia; R60.0 Localized edema; R21 Rash and other nonspecific skin eruption; R79.89 Other specified abnormal findings of blood chemistry; I10 Essential (primary) hypertension; K21.9 Gastro-esophageal reflux disease without esophagitis; I34.1 Nonrheumatic mitral (valve) prolapse; F32.A Depression, unspecified; F41.9 Anxiety disorder, unspecified; Z87.891 Personal history of nicotine dependence
CPT/HCPCS: 99285; 96374; 96375 ×2; 71046; 71275; 80048; 80053; 83690; 84484; 85025; 85379; 93005; Q9967

== ENCOUNTER → 2025-02-02 12:01 | Outpatient (REF) | payer MEDICARE, OTHER, SELFPAY ==
[2025-02-02 17:04] LABS: Urine Character Cloudy (Clear)
[2025-02-02 17:38] LABS: Urine White Cell >100 /HPF (0-5)
== END ==
LOC: CLAB 12:01
PROVIDERS: ATTENDING PHYSICIAN Physician Assistant
DX: N39.0 Urinary tract infection, site not specified (principal)
CPT/HCPCS: 81003; 81015; 87086; 87147; 87186

== ENCOUNTER → 2025-03-03 16:03 | Outpatient (REF) | payer MEDICARE, OTHER, SELFPAY ==
[2025-03-03 17:14] LABS: TSH 2.71 uIU/ml (0.47-4.68)
== END ==
LOC: REG 16:03
PROVIDERS: ATTENDING PHYSICIAN Nurse Practitioner Family; FAMILY PHYSICIAN Internal Medicine Geriatric Medicine
DX: E04.2 Nontoxic multinodular goiter (principal)
CPT/HCPCS: 36415; 84439; 84443

== ENCOUNTER 2025-03-07 02:52 | Emergency (ER) | payer MEDICARE, OTHER, SELFPAY ==
[2025-03-07 02:57] VITALS: BP 148/86; BMI 22.9
[2025-03-07 03:00] VITALS: BP 148/86
[2025-03-07 03:22] LABS: Hematocrit 35.9 % (37.0-47.0); Hemoglobin 12.5 g/dL (12.0-16.0); Mean Corp Hgb Conc. 34.8 g/dL (33.0-37.0); Mean Corpuscular Volume 90.0 fL (81.0-99.0); Nucleated Red Blood Cells % 0 %; Platelet Count 315 10^3/uL (130-400); Red Cell Dist. Width 12.5 % (11.5-14.5)
--- NOTE | 2025-03-07 03:35 | ED.GENMED ---
History of Present Illness
<Steve Dean Jr., PA-C - Last Filed: 03/07/25 23:12>
General
Chief Complaint: Heart Rate Problem
Source: patient
Exam Limitations: none
Time Seen by Provider: 03/07/25 03:09
Nursing documentation reviewed up to this point in time: agreed with
History of Present Illness
History of Present Illness:
84-year-old female past medical history of hypertension hyperlipidemia presenting to the emergency department today with concerns of palpitations at home. Called EMS found to be in atrial fibrillation. Was told in the past that she may have had
this but was never specifically treated for it. Has had intermittent palpitations to some extent over the past few months and as recently as last week. Not currently anticoagulated. Denies any specific chest pain currently did have a short
episode of achiness to the left chest a few hours prior to arrival.
Past History
<Steve Dean Jr., PA-C - Last Filed: 03/07/25 23:12>
Past History
ED Past Medical History: GERD, HTN, Valvular disease (MVP) and Psychiatric (anxiety, depression)
ED Past Surgical History: Gynecological (Hysterectomy and bladder suspension surgery), Tonsilectomy and Urological; Negative Cardiac
Social History
Tobacco: Former smoker
Alcohol: Occasional
Drug: None
Personal:
Living: alone
Employment: Retired
Family History
Family History: Hypertension; Negative Early CAD
Review of Systems
<Steve Dean Jr., PA-C - Last Filed: 03/07/25 23:12>
Review of Systems
Allergies reviewed?: Yes
All Other Systems: ROS reviewed and negative except as documented in HPI and ROS
Phy Exam
<Steve Dean Jr., PA-C - Last Filed: 03/07/25 23:12>
Physical Exam
Physical Exam:
GENERAL: Alert , in no apparent distress
EYE: pupils equal and reactive
NECK: Supple, no significant adenopathy.
ENT: o/p clr, mmm.
CARDIAC: Irregularly irregular rate and rhythm
LUNGS: Clear breath sounds bilaterally, no acute respiratory distress, no wheezes/rales/rhonchi
ABDOMEN: Soft, without focal tenderness, no r/g, no cvat
NEUROLOGICAL: Alert and oriented, no focal neuro deficits
SKIN: Warm and dry, skin intact.
MUSCULOSKELETAL: No edema, well perfused.
PSYCH: Normal and appropriate interaction.
Course
<Steve Dean Jr., MONI - Last Filed: 03/07/25 23:12>
Orders/Labs/Results
Orders:
Orders
03/07/25 02:54
Electrocardiogram (*1) Urgent
Reason for Study: Atrial Fibrillation
03/07/25 02:55
EKG- Treatment ONCE
03/07/25 03:10
Complete Blood Count/With Diff Urgent
Comprehensive Metabolic Panel Urgent
Troponin I Urgent
03/07/25 03:31
PTT Urgent
03/07/25 05:49
Apixaban [Eliquis] 2.5 mg PO ONCE ONE
03/07/25 05:50
Electrocardiogram (*1) Urgent
Reason for Study: Chest Pain
EKG- Treatment ONCE
03/07/25 06:26
Troponin I Urgent
Abnormal Lab Results
03/07/25
03:10
RBC 3.99 L 10^6/uL
(4.20-5.40)
Hct 35.9 L %
(37.0-47.0)
MCH 31.3 H pg
(27.0-31.0)
Eosinophils % 6.9 H %
(0-6)
Chloride 109 H mmol/L
(98-107)
BUN 22 H mg/dl
(7-17)
Glucose 122 H mg/dl
(70-99)
Albumin 5.1 H g/dl
(3.5-5.0)
03/07/25 03:10
03/07/25 03:10
Vital Signs
Initial and Last Documented VS:
Initial Vital Signs
Temp Pulse Resp BP Pulse Ox
97.9 F 109 12 148/86 98
03/07/25 02:57 03/07/25 02:57 03/07/25 02:57 03/07/25 02:57 03/07/25 02:57
Last Documented Vital Signs
Temp Pulse Resp BP Pulse Ox
97.9 F 63 19 151/69 94
03/07/25 02:57 03/07/25 07:30 03/07/25 07:30 03/07/25 07:23 03/07/25 07:23
<Juan Carlos Joya PA-C - Last Filed: 03/07/25 07:23>
Orders/Labs/Results
Orders:
Orders
03/07/25 02:54
Electrocardiogram (*1) Urgent
Reason for Study: Atrial Fibrillation
03/07/25 02:55
EKG- Treatment ONCE
03/07/25 03:10
Complete Blood Count/With Diff Urgent
Comprehensive Metabolic Panel Urgent
Troponin I Urgent
03/07/25 03:31
PTT Urgent
03/07/25 05:49
Apixaban [Eliquis] 2.5 mg PO ONCE ONE
03/07/25 05:50
Electrocardiogram (*1) Urgent
Reason for Study: Chest Pain
EKG- Treatment ONCE
03/07/25 06:26
Troponin I Urgent
Abnormal Lab Results
03/07/25
03:10
RBC 3.99 L 10^6/uL
(4.20-5.40)
Hct 35.9 L %
(37.0-47.0)
MCH 31.3 H pg
(27.0-31.0)
Eosinophils % 6.9 H %
(0-6)
Chloride 109 H mmol/L
(98-107)
BUN 22 H mg/dl
(7-17)
Glucose 122 H mg/dl
(70-99)
Albumin 5.1 H g/dl
(3.5-5.0)
03/07/25 03:10
03/07/25 03:10
Vital Signs
Initial and Last Documented VS:
Initial Vital Signs
Temp Pulse Resp BP Pulse Ox
97.9 F 109 12 148/86 98
03/07/25 02:57 03/07/25 02:57 03/07/25 02:57 03/07/25 02:57 03/07/25 02:57
Last Documented Vital Signs
Temp Pulse Resp BP Pulse Ox
97.9 F 63 19 151/69 94
03/07/25 02:57 03/07/25 07:30 03/07/25 07:30 03/07/25 07:23 03/07/25 07:23
<Steve Dean Jr., PA-C - Last Filed: 03/07/25 23:12>
MDM/Problems Addressed
MDM/Problems Addressed:
84-year-old presenting to the emergency department today with concerns of palpitations and going to the bathroom just prior to arrival. Found to be in atrial fibrillation via EMS. Currently taking metoprolol and amlodipine at baseline for previous
episodes of palpitations. Does get these somewhat frequently. Unclear if she has been in atrial fibrillation over the last few weeks concerning this no plans to cardiovert here in the ER. Heart rate mainly in the 90s occasionally going up to 110
and as low as 80. Initial troponin negative EKG nonischemic during ER stay without specific treatment patient's rhythm spontaneously converted to sinus rhythm. Heart rate in the 60s. Patient feels much better at this time she was started on
Eliquis as she has paroxysmal atrial fibrillation. Already on metoprolol stable for close outpatient follow-up with her [employer] consultant.
<Steve Dean Jr., PA-C - Last Filed: 03/07/25 23:12>
*Pulse Oximetry
SaO2: 98
Oxygen Mode of Delivery: Room air
<Juan Carlos Joya PA-C - Last Filed: 03/07/25 07:23>
*Pulse Oximetry
Patient hypoxic: no
*Critical Care Note
Total Time (30-74mins, 75-104mins- exclusive of procedures): Not Applicable
<Juan Carlos Joya PA-C - Last Filed: 03/07/25 07:23>
Update Note
Update Note:
Received care of patient upon signout pending repeat troponin. Repeat troponin is undetectable. Patient will be discharged with chest pain follow-up
ED Attending Note
<Steve Dean Jr., PA-C - Last Filed: 03/07/25 23:12>
-
Portions of this chart may have been created with voice recognition software.� Occasional wrong word or��sound alike� substitutions may have occurred due to the inherent limitations of voice recognition software.
Discharge Plan
Departure
Patient Disposition: Home (Routine Discharge)
Date of Disposition: 03/07/25
Time of Disposition: 07:22
Patient with high blood pressure during this ER visit?: No
Condition: Good
Covid-19: Not Applicable
Discharge Problem:
Paroxysmal A-fib, Chest pain
Instructions: Atrial Fibrillation (DC), Chest Pain DCA Follow Up
Prescriptions:
New
Eliquis 2.5 mg tablet
2.5 mg PO BID 30 Days Qty: 60 0RF
No Action
omeprazole 20 MG capsule,delayed release(DR/EC)
20 mg PO DAILYPRN PRN (Reason: as directed)
coenzyme Q10 [Co Q-10] 100 MG capsule
100 mg PO DAILY
Multivitamin
1 tab PO DAILY
Vitamin D
2,000 mg PO DAILY
calcium carbonate [Antacid Extra-Strength] 1 TABLET tablet,chewable
1 tab PO PRN PRN (Reason: heartburn)
naproxen sodium [Aleve] 220 MG tablet
220 mg PO PRN PRN (Reason: pain)
[place] Xl
1 tab PO DAILY
fluoxetine 20 MG capsule
20 mg PO DAILY
amoxicillin-pot clavulanate 875-125 mg tablet
1 tab PO BID Qty: 19 0RF
Referrals:
Dejuan Peñaloza MD [Family Provider, Internal Medicine]
Activity Restrictions/Additional Instructions:
You came to the emergency department today with concerns of palpitations you are found to be in atrial fibrillation. Please take the Eliquis 2.5 mg twice daily. Please follow closely with cardiology. Return for any worsening, new or concerning
symptoms.
Interventions
Interventions:
*Risk Screen - Suicide Last Done: 03/07/25 02:57
*General Assessment Last Done: 03/07/25 02:57
*Neglect/Abuse Screening Last Done: 03/07/25 02:57
*ED- Fall Risk Assessment Last Done: 03/07/25 02:57
*ED COVID-19 Vaccine History Last Done: 03/07/25 02:57
*Nursing Disposition Last Done: 03/07/25 09:31
ED- Cardiac Assessment Last Done: 03/07/25 08:00
ED- Pulmonary Assessment Last Done: 03/07/25 08:00
Discharge Date and Time
Discharge Date/Time: 03/07/25 09:32
Print Language: HEBREW
[2025-03-07 03:42] LABS: ALT (SGPT) 22 U/L (0-35); AST (SGOT) 31 U/L (14-36); Albumin 5.1 g/dl (3.5-5.0); Alkaline Phosphatase 62 U/L (38-126); Blood Urea Nitrogen 22 mg/dl (7-17); Calcium 10.2 mg/dl (8.4-10.2); Carbon Dioxide 25 mmol/L (22-30); Chloride 109 mmol/L (98-107); Estimated Creatinine Clearance 59 ml/min; Glucose 122 mg/dl (70-99); Potassium 4.0 mmol/L (3.5-5.1); Sodium 143 mmol/L (135-145); Total Protein 8.1 g/dl (6.3-8.2); eGFR > 60.00
[2025-03-07 03:49] LABS: APTT 31.4 Sec (23.4-35.0)
[2025-03-07 03:52] LABS: Troponin I < 0.012 ng/ml
[2025-03-07 04:05] VITALS: BP 149/85
[2025-03-07 05:00] VITALS: BP 148/84
[2025-03-07] MEDS: ELIQUIS 2.5 MG PO (06:17)
[2025-03-07 07:15] LABS: Troponin I < 0.012 ng/ml
[2025-03-07 07:23] VITALS: BP 151/69
== END 2025-03-07 09:32 | disposition home or self-care (01) ==
LOC: EMR 02:52
PROVIDERS: Emergency Medicine; Physician Assistant; EMERGENCY PHYSICIAN Emergency Medicine; FAMILY PHYSICIAN Internal Medicine Geriatric Medicine
DX: I48.0 Paroxysmal atrial fibrillation (principal); R07.9 Chest pain, unspecified; I10 Essential (primary) hypertension; E78.5 Hyperlipidemia, unspecified; I34.1 Nonrheumatic mitral (valve) prolapse; F41.9 Anxiety disorder, unspecified; F32.A Depression, unspecified; K21.9 Gastro-esophageal reflux disease without esophagitis; Z79.01 Long term (current) use of anticoagulants; Z87.891 Personal history of nicotine dependence; Z82.49 Family history of ischemic heart disease and other diseases of the circulatory system
CPT/HCPCS: 99284; 80053; 84484; 85025; 85730; 93005

== ENCOUNTER → 2025-03-15 09:45 | Outpatient (REF) | payer MEDICARE, OTHER, SELFPAY | LOC: PAVMRI 09:45 | PROVIDERS: ATTENDING PHYSICIAN Physician Assistant; FAMILY PHYSICIAN Internal Medicine Geriatric Medicine | DX: N36.1 Urethral diverticulum (principal) | CPT/HCPCS: 72195 ==

== ENCOUNTER → 2025-03-16 13:48 | Outpatient (REF) | payer MEDICARE, OTHER, SELFPAY | LOC: RAD 13:48 | PROVIDERS: ATTENDING PHYSICIAN Nurse Practitioner Family; FAMILY PHYSICIAN Internal Medicine Geriatric Medicine | DX: E04.2 Nontoxic multinodular goiter (principal) | CPT/HCPCS: 76536 ==

== ENCOUNTER 2025-03-24 23:25 | Emergency (ER) | payer MEDICARE, OTHER, SELFPAY ==
[2025-03-24 23:29] VITALS: BP 153/77
[2025-03-24 23:47] LABS: Hematocrit 31.3 % (37.0-47.0); Hemoglobin 10.7 g/dL (12.0-16.0); Mean Corp Hgb Conc. 34.2 g/dL (33.0-37.0); Mean Corpuscular Volume 87.7 fL (81.0-99.0); Nucleated Red Blood Cells % 0 %; Platelet Count 311 10^3/uL (130-400); Red Cell Dist. Width 12.4 % (11.5-14.5)
[2025-03-25 00:11] LABS: Troponin I < 0.012 ng/ml
[2025-03-25 00:17] LABS: ALT (SGPT) 18 U/L (0-35); AST (SGOT) 21 U/L (14-36); Albumin 4.5 g/dl (3.5-5.0); Alkaline Phosphatase 54 U/L (38-126); Blood Urea Nitrogen 23 mg/dl (7-17); Calcium 9.8 mg/dl (8.4-10.2); Carbon Dioxide 26 mmol/L (22-30); Chloride 108 mmol/L (98-107); Glucose 105 mg/dl (70-99); Potassium 4.2 mmol/L (3.5-5.1); Sodium 139 mmol/L (135-145); Total Protein 7.0 g/dl (6.3-8.2); eGFR > 60.00
--- NOTE | 2025-03-25 00:47 | ED.GENMED ---
History of Present Illness
General
Chief Complaint: Cardiac Symptoms
Time Seen by Provider: 03/25/25 00:28
History of Present Illness
History of Present Illness:
He 84-year-old female with history of paroxysmal A-fib, hypertension, and hyperlipidemia presents to the emergency department for evaluation of heart palpitations that woke her from sleep earlier this evening. States that she had a racing heartbeat
and chest pressure that lasted approximately 15 minutes that is since subsided. She is wearing a Holter monitor placed about 10 days ago by her relationship counselor, although she admits she did not hit the button on the monitor to indicate an event. She
denies any current symptoms. Feels well overall.
Past History
Past History
ED Past Medical History: GERD, HTN, Valvular disease (MVP) and Psychiatric (anxiety, depression)
ED Past Surgical History: Gynecological (Hysterectomy and bladder suspension surgery), Tonsilectomy and Urological; Negative Cardiac
Social History
Tobacco: Former smoker
Alcohol: Occasional
Drug: None
Personal:
Living: alone
Employment: Retired
Family History
Family History: Hypertension; Negative Early CAD
Review of Systems
Review of Systems
Allergies reviewed?: Yes
All Other Systems: ROS reviewed and negative except as documented in HPI and ROS
Phy Exam
Physical Exam
Physical Exam:
GEN: Well appearing, NAD, WDWN
HEENT: Oral mucosa moist, no scleral icterus
Cardiac: Regular rate and rhythm, no murmurs
Lung: No respiratory distress, no tachypnea
MSK: No gross deformity or injuries
Skin: Good color, no pallor or jaundice, no rashes
Neuro: AO x3, moves all extremities freely
Psych: Calm, cooperative
Course
Orders/Labs/Results
Orders:
Orders
03/24/25 23:27
Electrocardiogram (*1) Urgent
Reason for Study: Chest Pain
EKG- Treatment ONCE
03/24/25 23:38
Complete Blood Count/With Diff Urgent
Comprehensive Metabolic Panel Urgent
Troponin I Urgent
Abnormal Lab Results
03/24/25
23:38
RBC 3.57 L 10^6/uL
(4.20-5.40)
Hgb 10.7 L g/dL
(12.0-16.0)
Hct 31.3 L %
(37.0-47.0)
Chloride 108 H mmol/L
(98-107)
BUN 23 H mg/dl
(7-17)
Glucose 105 H mg/dl
(70-99)
03/24/25 23:38
03/24/25 23:38
Vital Signs
Initial and Last Documented VS:
Initial Vital Signs
Temp Pulse Resp BP Pulse Ox
98.2 F 63 20 153/77 98
03/24/25 23:29 03/24/25 23:29 03/24/25 23:29 03/24/25 23:29 03/24/25 23:29
Last Documented Vital Signs
Temp Pulse Resp BP Pulse Ox
98.2 F 66 20 140/55 98
03/24/25 23:29 03/25/25 01:00 03/24/25 23:29 03/25/25 01:00 03/25/25 00:49
MDM/Problems Addressed
MDM/Problems Addressed:
Patient wearing a 14-day Holter monitor thus if this was an arrhythmia can be detected by cardiology as an outpatient. She remained stable in the ED and labs are reassuring. Doubt ACS, she is anticoagulated as well thus doubt PE. Stable for
discharge
Comment
Comment:
EKG independently interpreted by me shows a normal sinus rhythm at a rate of [address] changes concerning for ischemia
*Pulse Oximetry
SaO2: 98
Oxygen Mode of Delivery: Room air
Patient hypoxic: no
*Critical Care Note
Total Time (30-74mins, 75-104mins- exclusive of procedures): Not Applicable
ED Attending Note
-
Portions of this chart may have been created with voice recognition software.� Occasional wrong word or��sound alike� substitutions may have occurred due to the inherent limitations of voice recognition software.
Discharge Plan
Departure
Patient Disposition: Home (Routine Discharge)
Date of Disposition: 03/25/25
Time of Disposition: 00:49
Patient with high blood pressure during this ER visit?: No
Discharge Problem:
Heart palpitations
Instructions: Palpitations - ED (DC)
Prescriptions:
No Action
omeprazole 20 MG capsule,delayed release(DR/EC)
20 mg PO DAILYPRN PRN (Reason: as directed)
coenzyme Q10 [Co Q-10] 100 MG capsule
100 mg PO DAILY
Multivitamin
1 tab PO DAILY
Vitamin D
2,000 mg PO DAILY
calcium carbonate [Antacid Extra-Strength] 1 TABLET tablet,chewable
1 tab PO PRN PRN (Reason: heartburn)
naproxen sodium [Aleve] 220 MG tablet
220 mg PO PRN PRN (Reason: pain)
[place] Xl
1 tab PO DAILY
fluoxetine 20 MG capsule
20 mg PO DAILY
amoxicillin-pot clavulanate 875-125 mg tablet
1 tab PO BID Qty: 19 0RF
Eliquis 2.5 mg tablet
2.5 mg PO BID 30 Days Qty: 60 0RF
Referrals:
Dejuan Peñaloza MD [Family Provider, Internal Medicine]
Activity Restrictions/Additional Instructions:
Home if your symptoms recur be sure to hit the indicator button on your Holter monitor and consider returning to the emergency department if symptoms worsen
Interventions
Interventions:
*Risk Screen - Suicide Last Done: 03/24/25 23:29
*General Assessment Last Done: 03/24/25 23:29
*Neglect/Abuse Screening Last Done: 03/24/25 23:29
Discharge Date and Time
Print Language: OCCITAN
[2025-03-25 01:00] VITALS: BP 140/55
== END 2025-03-25 02:00 | disposition home or self-care (01) ==
LOC: EMR 23:25
PROVIDERS: EMERGENCY PHYSICIAN Emergency Medicine; FAMILY PHYSICIAN Internal Medicine Geriatric Medicine
DX: R00.2 Palpitations (principal); I48.0 Paroxysmal atrial fibrillation; I10 Essential (primary) hypertension; E78.5 Hyperlipidemia, unspecified; Z87.891 Personal history of nicotine dependence
CPT/HCPCS: 99284; 80053; 84484; 85025; 93005

== ENCOUNTER → 2025-04-13 09:12 | Outpatient (REF) | payer MEDICARE, OTHER, SELFPAY | LOC: RCS 09:12 | PROVIDERS: ATTENDING PHYSICIAN Internal Medicine Cardiovascular Disease; FAMILY PHYSICIAN Internal Medicine Geriatric Medicine | DX: I48.0 Paroxysmal atrial fibrillation (principal); R07.89 Other chest pain | CPT/HCPCS: 93306 ==

== ENCOUNTER → 2025-04-20 10:57 | Outpatient (REF) | payer MEDICARE, OTHER, SELFPAY | LOC: HWRCS 10:57 | PROVIDERS: ATTENDING PHYSICIAN Internal Medicine Cardiovascular Disease; FAMILY PHYSICIAN Internal Medicine Geriatric Medicine | DX: I48.0 Paroxysmal atrial fibrillation (principal); R07.89 Other chest pain | CPT/HCPCS: 78452; 93017; A9500; J2785 ==

== ENCOUNTER 2025-07-26 14:06 | Emergency (ER) | payer MEDICARE, OTHER, SELFPAY ==
[2025-07-26 14:19] VITALS: BP 149/90
[2025-07-26 17:41] VITALS: BMI 23.8
--- NOTE | 2025-07-26 18:52 | ED.GENMED ---
History of Present Illness
General
Chief Complaint: Visual Problem
Source: patient
Exam Limitations: none
Time Seen by Provider: 07/26/25 18:07
Nursing documentation reviewed up to this point in time: agreed with
History of Present Illness
History of Present Illness:
CC: Visual changes
HPI:
85-year-old female with a past medical history of A-fib on Eliquis, hypertension, hyperlipidemia, who presents to the ER today with concerns of transient visual changes. She reports that around 9:30 AM this morning, she had a 10-minute episode
where she noticed a flash of light and kaleidoscope like appearance to her right upper visual field. She is never had anything like this before. After this happen, she noticed some mild pain on the right side of her head. This is also resolved.
Currently, she feels well. No headache at present. No dizziness or lightheadedness. No numbness or tingling on the face or in the upper extremities. No loss of consciousness. No nausea or vomiting. She saw her liquefier Dr. Bernstein @
[facility] 2 months ago because she was having concerns about peripheral visual changes and she was told that her eye exam at that time was normal. Patient notes that when she had these visual changes, there was no visual loss.
EXAM:
General: Patient is well appearing and in no acute distress; non-toxic
Skin: Warm and dry, no rashes or lesions
Head: Normocephalic, atraumatic. No temporal artery tenderness.
Eyes: Sclera non-icteric. EOMs intact.
Right intraocular pressure 16 mmHg, left eye intraocular pressure 18 mmHg
Right eye corneal staining negative for corneal abrasion, dendritic lesions, corneal ulcer
Bedside ocular ultrasound shows no retinal flap, no vitreous debris b/l
Cardiac: Regular rate and rhythm, no murmurs
Peripheral Vascular: No lower extreme swelling or edema
Pulm: Normal respiratory effort
Neuro: CN II-XII intact, no focal neurologic deficits. Sensation intact bilaterally. Normal finger-nose.
Psychiatric: Appropriate mood and affect.
ED COURSE:
Patient has remained asymptomatic while in the ER
NUMBER AND COMPLEXITY OF PROBLEMS ADDRESSED AT THE ENCOUNTER
� Chronic conditions affecting care: A-fib on Eliquis, hypertension, hyperlipidemia, GERD, valve disorder
� Acute Exacerbation and/or Progression of Chronic Illness: N/A
� Differential Diagnosis includes:
Differentials include GCA, tension headache, intracerebral hemorrhage, retinal detachment, posterior trace attachment, migraine headache with aura,
AMOUNT AND/OR COMPLEXITY OF DATA TO BE REVIEWED AND ANALYZED
� I performed an independent evaluation of and my interpretation is:
EKG: not indicated
CT: no acute intra-cranial abnormality
Laboratory Studies: ESR and CRP normal
Other:
-Review of other/old records: Reviewed prior records, reviewed ER physician documentation from 03/25/2025 patient seen for heart palpitations, she was wearing a Holter monitor at the time and she remained stable in the ED and was discharged
-Reviewed ER physician documentation from 09/08/2022, patient seen for fall and balance issues, on exam at the time she no focal neurologic deficit and she is able to ambulate in the ER hallway with a steady gait she has a normal workup at this time
and was discharged
- No hospital discharge summary to review
� Clinical information was obtained by an independent historian: n/a
� Prescriptions/Medications Considered but not given:
� Further testing considered but not performed: N/A
CRP and ESR were performed which were normal
RISK OF COMPLICATIONS AND/OR MORBIDITY OR MORTALITY OF PATIENT MANAGEMENT
� Social determinants of health affecting care: None
� Discussion with other providers: Discussed case with ED attending
� Escalation of care including admission/observation vs risk of discharge considered:
85-year-old female presents to the ER today with concerns of kaleidoscope like appearance in her visual field and flashes of light. This occurred for 10 minutes at 9:30 AM this morning. Afterwards, she experienced a mild right sided headache. All
the symptoms have since resolved and she is feeling better. On physical exam she is well-appearing no acute distress. She has no temporal artery tenderness. ESR and CRP are normal. No signs of retinal detachment or posterior vitreous detachment
on ultrasound at bedside. No fluorecin uptake. Visual acuity grossly intact. No focal neurologic deficits. Patient follows closely with Dr. Bernstein. Patient will call the office this week to schedule close follow-up appointment. Discussed strict
return precautions. Patient stable for discharge.
Past History
Past History
ED Past Medical History: GERD, HTN, Valvular disease (MVP) and Psychiatric (anxiety, depression)
ED Past Surgical History: Gynecological (Hysterectomy and bladder suspension surgery), Tonsilectomy and Urological; Negative Cardiac
Social History
Tobacco: Former smoker
Alcohol: Occasional
Drug: None
Personal:
Living: alone
Employment: Retired
Family History
Family History: Hypertension; Negative Early CAD
Phy Exam
Physical Exam
Physical Exam:
See HPI
Course
Orders/Labs/Results
Orders:
Orders
07/26/25 17:39
CT Head W/o Iv Contrast Urgent
Comment:
Reason For Exam: flashing lights, R sided head pain
07/26/25 18:12
Visual Acuity- Treatment ONCE
07/26/25 19:33
C-Reactive Protein Urgent
Sed Rate [Erythrocyte Sed Rate] Urgent
07/26/25 20:44
Fluorescein Sodium [Ful-Pamela] 3 mg .ROUTE .STK-MED ONE
Purified Water Eye Wash [Dacriose Eye Wash Solution] 120 ml .ROUTE .STK-MED ONE
Vital Signs
Initial and Last Documented VS:
Initial Vital Signs
Temp Pulse Resp BP Pulse Ox
98 F 73 16 149/90 98
07/26/25 14:19 07/26/25 14:19 07/26/25 14:19 07/26/25 14:19 07/26/25 14:19
Last Documented Vital Signs
Temp Pulse Resp BP Pulse Ox
98 F 66 18 161/81 98
07/26/25 14:19 07/26/25 20:30 07/26/25 20:30 07/26/25 20:30 07/26/25 18:53
*Pulse Oximetry
SaO2: 98
Oxygen Mode of Delivery: Room air
Patient hypoxic: no
*Critical Care Note
Total Time (30-74mins, 75-104mins- exclusive of procedures): Not Applicable
ED Attending Note
-
Portions of this chart may have been created with voice recognition software.� Occasional wrong word or��sound alike� substitutions may have occurred due to the inherent limitations of voice recognition software.
Discharge Plan
Departure
Patient Disposition: Home (Routine Discharge)
Date of Disposition: 07/26/25
Time of Disposition: 20:13
Patient with high blood pressure during this ER visit?: Yes
Condition: Good
Discharge Problem:
Visual distortion, Floaters in visual field
Instructions: BLOOD PRESSURE
Prescriptions:
No Action
omeprazole 20 MG capsule,delayed release(DR/EC)
20 mg PO DAILYPRN PRN (Reason: as directed)
coenzyme Q10 [Co Q-10] 100 MG capsule
100 mg PO DAILY
Multivitamin
1 tab PO DAILY
Vitamin D
2,000 mg PO DAILY
calcium carbonate [Antacid Extra-Strength] 1 TABLET tablet,chewable
1 tab PO PRN PRN (Reason: heartburn)
naproxen sodium [Aleve] 220 MG tablet
220 mg PO PRN PRN (Reason: pain)
[place] Xl
1 tab PO DAILY
fluoxetine 20 MG capsule
20 mg PO DAILY
amoxicillin-pot clavulanate 875-125 mg tablet
1 tab PO BID Qty: 19 0RF
Eliquis 2.5 mg tablet
2.5 mg PO BID 30 Days Qty: 60 0RF
Referrals:
Helder Bernstein MD [[facility]]
UNKNOWN - PT DOES,NOT KNOW [Family Provider]
Activity Restrictions/Additional Instructions:
As discussed, your ESR and CRP blood test are normal. Your CAT scan of the head showed no acute intracranial abnormalities. Your eye exam was normal.
Please call Dr. Bernstein's office to schedule follow-up appointment.
PLEASE RETURN TO ER SHOULD YOU DEVELOP VISUAL LOSS, CURTAIN COMING DOWN OVER YOUR VISION, NEW OR PERSISTENT HEADACHE, INTRACTABLE NAUSEA OR VOMITING, NUMBNESS OR TINGLING ONE-SIDED BODY VERSUS OTHER, OR ANY OTHER SIGNS OR SYMPTOMS WORRISOME TO YOU.
Interventions
Interventions:
*General Assessment Last Done: 07/26/25 14:19
*Neglect/Abuse Screening Last Done: 07/26/25 14:19
*ED COVID-19 Vaccine History Last Done: 07/26/25 17:42
*ED Influenza Vaccine History Last Done: 07/26/25 17:42
[facility] Risk Assessment Tool Last Done: 07/26/25 17:42
*Risk Screen - Suicide (C-SSRS) Last Done: 07/26/25 14:19
*Nursing Disposition Last Done: 07/26/25 20:30
ED- Neurological Assessment Last Done: 07/26/25 17:42
ED-EENT Assessment Last Done: 07/26/25 14:22
Discharge Date and Time
Discharge Date/Time: 07/26/25 20:32
Print Language: NICARAG[place]
[2025-07-26 19:59] LABS: C-Reactive Protein 5.20 mg/L (0.0-10.00)
[2025-07-26 20:30] VITALS: BP 161/81
== END 2025-07-26 20:32 | disposition home or self-care (01) ==
LOC: EMR 14:06
PROVIDERS: Physician Assistant; EMERGENCY PHYSICIAN Emergency Medicine
DX: H53.9 Unspecified visual disturbance (principal); H43.399 Other vitreous opacities, unspecified eye; I10 Essential (primary) hypertension; I48.91 Unspecified atrial fibrillation; E78.5 Hyperlipidemia, unspecified; I34.1 Nonrheumatic mitral (valve) prolapse; K21.9 Gastro-esophageal reflux disease without esophagitis; F41.9 Anxiety disorder, unspecified; F32.A Depression, unspecified; Z79.01 Long term (current) use of anticoagulants; Z87.891 Personal history of nicotine dependence; Z82.49 Family history of ischemic heart disease and other diseases of the circulatory system
CPT/HCPCS: 99284; 70450; 85652; 86140